=== PATIENT | female | born 1970 ===

== ENCOUNTER → 2018-10-09 21:44 | Outpatient (REF) | payer BC, SELFPAY ==
[2018-10-09 21:55] LABS: Bacteria Urine None Seen; RBC Urine None Seen (0-5/HPF); WBC Urine None Seen (0-5/HPF)
[2018-10-09 22:23] LABS: Appearance Urine UA CLEAR; Bilirubin Urine UA NEGATIVE (NEGATIVE); Color Urine UA YELLOW; Glucose Urine UA NEGATIVE (Negative); Ketones Urine UA NEGATIVE (NEGATIVE); Leukocyte Esterase Urine UA NEGATIVE (NEGATIVE); Nitrite Urine UA NEGATIVE (Negative); Occult Blood Urine UA NEGATIVE (Negative); Protein Urine UA NEGATIVE (Negative); Urobilinogen Urine UA 0.2 E.U./dL (0.2)
[2018-10-09 22:30] LABS: Culture Indicated Urine Cult Not Indicated; Urine Comments Microscopic Normal
[2018-10-09 22:46] LABS: Add Manual Diff / Slide Review NO; Basophils Absolute Auto 0 /uL (0-100); Basophils Percent Auto 0.8 % (0-2); Eosinophils Absolute Auto 200 /uL (0-450); Eosinophils Percent Auto 4.1 % (2-4); Hematocrit 37.4 % (36-46); Hemoglobin 12.6 g/dL (12.0-16.0); Lymphocytes Absolute Auto 2400 /uL (1100-4500); Lymphocytes Percent Auto 54.1 % (25-40); Mean Corpuscular HGB Conc 33.6 % (30-36); Mean Corpuscular Hemoglobin 31.8 PG (26-34); Mean Corpuscular Volume 94.7 fL (80-100); Monocytes Absolute Auto 300 /uL (0-900); Monocytes Percent Auto 6.1 % (3-14); Neutrophils Absolute Auto 1500 /uL (1500-7000); Neutrophils Percent Auto 34.9 % (50-75); Platelet Count 278 X10^3/uL (150-400); Red Blood Cell Count 3.95 X10^6/uL (4.0-5.2); Red Cell Distribution Width 13.5 % (11.6-14.8); White Blood Cell Count 4.4 X10^3/uL (4.5-11.0)
[2018-10-09 23:07] LABS: Erythrocyte Sedimentation Rate 7 MM/HR (0-20)
[2018-10-09 23:18] LABS: HEMOLYSIS < 15 (0-50); Iron 171 ug/dL (37-170)
[2018-10-09 23:22] LABS: Alanine Aminotransferase 52 IU/L (9-52); Albumin 4.3 g/dL (3.5-5.0); Albumin Globulin Ratio 1.7 (1.0-2.8); Alkaline Phosphatase 70 U/L (38-126); Amylase 54 U/L (30-110); Aspartate Aminotransferase 37 IU/L (14-36); BUN Creatinine Ratio 21.7 (6-22); Bilirubin Total 0.5 mg/dL (0.2-1.3); Blood Urea Nitrogen 13 mg/dL (7-17); Calcium 9.4 mg/dL (8.4-10.2); Carbon Dioxide 28 mmol/L (22-32); Chloride 103 mmol/L (98-107); Cholesterol 227 mg/dL (140-199); Estimated Glomerular Filt Rate > 60.0 mL/min (>60); Gamma Glutamyl Transpeptidase 17 U/L (12-43); Globulin 2.5 g/dL (1.7-4.1); Glucose 89 mg/dL (70-100); HDL Cholesterol 66 mg/dL (40-60); HEMOLYSIS < 15 (0-50); LDL Cholesterol Calculated 145 mg/dL (<100); Lipase 111 U/L (23-300); Potassium 4.2 mmol/L (3.4-5.1); Sodium 140 mmol/L (137-145); Total Protein 6.8 g/dL (6.3-8.2); Triglycerides 80 mg/dL (35-150)
[2018-10-09 23:25] LABS: C-Reactive Protein Quant < 0.5 mg/dL (<1.0)
[2018-10-09 23:28] LABS: Rheumatoid Factor < 8.6 IU/mL (<12.0)
[2018-10-09 23:30] LABS: Percent Iron Saturation 50 % (15-50); Total Iron Binding Capacity 340 ug/dL (265-497); Transferrin 271 mg/dL (206-381)
[2018-10-09 23:33] LABS: Vitamin D 25 Hydroxy (D3) 58.5 ng/mL (30.0-100.0)
[2018-10-09 23:38] LABS: Free T3, Triiodothyronine Free 3.49 pg/mL (2.77-5.27); Free T4, Direct Thyroxine 0.96 ng/dL (0.78-2.19)
[2018-10-09 23:51] LABS: Thyroid Stimulating Hormone 1.76 uIU/mL (0.47-4.68)
[2018-10-09 23:54] LABS: Cortisol Random 9.07 ug/dL
[2018-10-10 00:28] LABS: Vitamin B12 574 pg/mL (239-931)
[2018-10-13 14:56] LABS: Dehydroepiandrosterone Sulfate 122 mcg/dL (19-231)
[2018-10-13 15:00] LABS: Anti Thyroglobulin Antibody < 1 IU/mL (< 2); Thyroid Peroxidase Antibodies 1 IU/mL (< 9)
[2018-10-13 15:17] LABS: Fructosamine 241 umol/L (190-270)
[2018-10-13 15:36] LABS: CMV IgG Antibody > 10.00 U/mL (< 0.60); CMV IgM Antibody < 30.00 AU/mL (< 30.00); EBV Virus IgM Ab < 36.00 U/mL (< 36.00); EVB Early IgG < 9.00 U/mL (< 9.00)
[2018-10-13 19:17] LABS: Homocysteine 8.9 umol/L (< 10.4)
[2018-10-13 20:37] LABS: ANCA Screen Negative (Negative)
[2018-10-14 15:33] LABS: C.albicans IgA 0.6; C.albicans IgG 0.8; C.albicans IgM 0.7 (<1.0)
[2018-10-14 18:51] LABS: ANA Pattern Homogeneous; ANA Screen, IFA Positive (Negative); ANA Titer 1:40 titer (<1:40)
[2018-10-14 20:59] LABS: CCP Antibodies IgG/IgA 24
[2018-10-15 12:48] LABS: Antimyeloperoxidase Antibodies <9.0; Antiproteinase 3 Antibodies <3.5; Saccharomyces cerevisiae IgA <20.0
[2018-10-18 17:24] LABS: Triiodothyronine T3 Reverse 12 ng/dL (8-25)
== END ==
LOC: LAB 21:44
PROVIDERS: Visit Provider Naturopath
DX: R53.83 Other fatigue (principal); R10.9 Unspecified abdominal pain; M12.80 Other specific arthropathies, not elsewhere classified, unspecified site; D50.9 Iron deficiency anemia, unspecified; E34.8 Other specified endocrine disorders; E03.9 Hypothyroidism, unspecified; N39.0 Urinary tract infection, site not specified
CPT/HCPCS: 36415; 80053; 80061; 81001; 82150; 82306; 82533; 82607; 82627; 82728; 82746; 82977; 82985; 83036; 83090; 83520; 83540; 83550; 83690; 84439; 84443; 84481; 84482; 84550; 85025; 85651; 86021; 86038; 86140; 86200; 86376; 86430; 86628; 86644; 86645; 86663; 86664; 86665; 86671; 86800